=== PATIENT | female | born 1995 | race African-American/Black ===

== ENCOUNTER 2023-03-09 09:24 | Emergency (ER) | payer OTHER, SELFPAY ==
[2023-03-09 09:31] VITALS: BP 127/90; PULSE 96; RESP 16; TEMP 36.8; O2SAT 100
[2023-03-09 10:43] VITALS: BP 140/98; PULSE 93; RESP 13; O2SAT 100
--- NOTE | 2023-03-09 10:50 | ED.WOUNDLAC ---
HPI - Wound/Laceration General Chief Complaint: Wound/Laceration Stated Complaint: wound to right thigh Time Seen by Provider: 03/09/23 10:35 Source: patient Mode of arrival: ambulatory Limitations: no limitations History of Present Illness HPI narrative: This is a 28 year old female that presents to the ER for a wound to her right groin. Reports it has been painful the last couple of weeks. 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 She has been on Bactrim with little relief. Does report some drainage from the area. Denies fever. Related Data Allergies Allergy/AdvReac Type Severity Reaction Status Date / Time No Known Allergies Allergy Mild Verified 03/09/23 09:33 Review of Systems Review of Systems: CONSTITUTIONAL: Denies fever SKIN: Reports wound All systems reviewed & are unremarkable except as noted in HPI and below PMFSH Past Medical History Medical History (Updated 03/09/23 @ 11:26 by Jayla Porter PA-C) No active medical problems Social History Social History (Updated 03/09/23 @ 10:55 by Jayla Porter PA-C) Substance use: never Exam Narrative: GENERAL: Well-appearing, well-nourished, and in no acute distress. HEAD: Normocephalic, atraumatic. EYES: EOMI. CHEST: Clear to auscultation. No respiratory distress. No wheezes rales or rhonchi HEART: Regular rate and rhythm. No murmur heard. Normal peripheral pulses. EXTREMITIES: Normal range of motion. No edema. Right groin with small circular area of swelling with fluctuance SKIN: Warm, dry, no rash. NEURO: No focal deficits. Alert and oriented x3. PSYCH: Normal mood and affect Course Course Emergency Course: Patient agrees with plan of care Vital Signs Vital signs: Vital Signs Temperature 98.2 F 03/09/23 09:31 Pulse Rate 96 03/09/23 09:31 Respiratory Rate 16 03/09/23 09:31 Blood Pressure 127/90 03/09/23 09:31 Pulse Oximetry 100 03/09/23 09:31 Temperature 98.2 F 03/09/23 09:31 Pulse Rate 93 03/09/23 10:43 Respiratory Rate 13 03/09/23 10:43 Blood Pressure 140/98 H 03/09/23 10:43 Pulse Oximetry 100 03/09/23 10:43 Procedures Abscess I/D lower extremity: Date of Incision: 03/09/23 Time of Incision: 11:25 Side (if applicable): right Local Anesthetic: lidocaine 1% Amount of anesthesia used (mL): 2 Technique: incised with #11 blade Irrigation: Yes Packing used?: none I&D Results: Pus and Blood MDM - Wound/Laceration MDM Narrative Medical decision making narrative: Patient presents to the emergency department for a small abscess in her right groin. She is afebrile and nontoxic-appearing. Successful I&D. Instructed on further wound care. Will be started on doxycycline. Recommended she should follow-up with a auto body service mechanic as this seems to be a recurrent problem for her. She was given warnings to return to the ER Differential Diagnosis Differential diagnosis: Likely abscess and other (Cellulitis) Critical Care Time Critical Care Time Critical Care Time: No Discharge Plan Discharge Clinical Impression: Abscess Patient Disposition: Home, Self-Care Condition: Stable Instructions: Antibiotic Form, Abscess (ED) Additional Instructions: Return if symptoms worsen or concerns: any increase in redness, swelling, pain or fever over 101 Take antibiotics as directed. Clean wound with mild soapy water. Apply antibiotic ointment and clean dressing at least three times daily. Warm compresses 3 times a day for 15 minutes each Follow up with primary care in the next 2-3 days for re-evaluation. Follow up with a Plant Changer. [facility] in [place] if needed Prescriptions: New doxycycline hyclate 100 mg tablet 100 mg PO BID 10 Days Qty: 20 0RF Follow-up/Referrals: PHYSICIAN,REJOGGER [Primary Care Provider] - Javid Sauceda MD [Physician] -
== END 2023-03-09 11:35 | disposition home or self-care (01) ==
PROVIDERS: Emergency Provider Physician Assistant
DX: L02.214 Cutaneous abscess of groin (principal)
CPT/HCPCS: 10060; 87070; 87205; 99283